=== PATIENT | male | born 1955 | race Caucasian/White ===

== ENCOUNTER → 2019-01-02 | Outpatient (CLI) | payer BC ==
--- NOTE | 2019-01-02 16:11 | RAD ---
MRI Cervical Spine Without Contrast History: Cervical arthritis, myelopathy Technique: Multiplanar, multi sequential noncontrast MR imaging was performed of the cervical spine. Comparison: None Findings: There is some motion degradation. Cervical cord caliber is within normal limits, no expansile signal abnormality, limited evaluation for subtle signal change due to artifact. Cervical vertebral body stature is overall maintained. There is very minimal grade 1 anterior spondylolisthesis C3-4 and C4-5. There is more advanced degenerative disc disease C5-6 and C6-7 and to lesser degree at C7-T1. There is mild C5-C6 endplate edema likely reactive/degenerative in etiology. C2-C3: There is left facet degenerative change. There is small, approximate 0.4 cm focus of cystic change associated with left facet articulation likely degenerative in etiology Neural foramina and spinal canal are adequate. C3-C4: There is severe left facet degenerative change, to lesser degree on the right. Spinal canal is adequate. There is [id number] narrowing of the left neural foramen from posteriorly, right neural foramen adequate. C4-C5: There is severe facet degenerative change greater on the left. Spinal canal is adequate. There is mild left uncovertebral degenerative change. There is fairly severe narrowing of the left neural foramen, right neural foramen not significantly narrowed. C5-C6: There is minimal disc osteophyte complex. There is buckling of the ligamentum flavum. Central canal is narrowed to about 7-8 mm. There is fairly severe facet degenerative change somewhat greater on the right. There is uncovertebral degenerative change bilaterally. There is fairly severe left and likely [id number] right neural foramina compromise. C6-C7: There is minimal disc osteophyte complex and shallow protrusion. Central canal is narrowed to about 6 to 7 mm, effacement of ventral subarachnoid space and contact of the ventral cord. There is bilateral facet degenerative change, also uncovertebral degenerative change. There is fairly severe neural foramina compromise bilaterally somewhat greater on the left. C7-T1: There is negligible posterior protrusion. Central canal is adequate 11 mm. There is facet degenerative change bilaterally. There is mild right uncovertebral degenerative change. Left neural foramen is adequate, at least mild narrowing of the right neural foramen. Impression: 1. There is spinal stenosis about 6 to 7 mm at C6-7 and to a somewhat lesser degree at C5-6 about 7 to 8 mm. There is contact of the ventral cord at C6-7. 2. There is multilevel degenerative disc disease greatest at C5-6 and C6-7 and to a lesser degree at C7-T1. 3. There is multilevel facet degenerative change. There is very mild grade 1 anterior spondylolisthesis at C4-5 and C3-4. 4. Facet and uncovertebral degenerative change contributes to multilevel neural foramina compromise as stated, more significant narrowing on the left at C4-5 and C5-6 and bilaterally at C6-7, lesser degree of narrowing on the right at C5-6 and on the left at C3-C4. Electronically signed by: Erik Estrada MD (01/02/2019 4:08 PM) [id number]
== END | disposition home or self-care (01) ==
LOC: MRI 14:07
PROVIDERS: ATTEND Internal Medicine
DX: M47.12 Other spondylosis with myelopathy, cervical region (principal); M43.12 Spondylolisthesis, cervical region; M46.82 Other specified inflammatory spondylopathies, cervical region; M50.023 Cervical disc disorder at C6-C7 level with myelopathy; M48.02 Spinal stenosis, cervical region
CPT/HCPCS: 72141